=== PATIENT | male | born 1985 | race Caucasian/White ===

== ENCOUNTER 2021-12-05 05:19 | Inpatient (IN) | payer OTHER ==
[~2021-12-05] VITALS: Ht 172.7 cm; Wt 107.0 kg
[~2021-12-05 05:19] MED LIST: LEVOTHYROXINE PO
--- NOTE | 2021-12-05 05:43 | NUR ---
Patient's at bedside
[2021-12-05] MEDS ORDERED: CLONIDINE HCL 0.2 MG TABLET PO ONE (05:45)
[2021-12-05] MEDS ORDERED: IV NORMAL SALINE 1000 ML BAG IV ONE (05:45)
[2021-12-05] MEDS ORDERED: ONDANSETRON 4 MG/2 ML VIAL IV ONE (05:45)
[2021-12-05] MEDS ORDERED: HYDROMORPHONE 1 MG/1 ML DISP.SYRIN IV ONE ×2 (05:45→08:15)
--- NOTE | 2021-12-05 05:45 | NUR ---
Patient's BP is 208/124. Dr Lucero made aware
[2021-12-05 05:56] LABS: HEMATOCRIT 45.2 % (36.7-47.1); MEAN CORPUSCULAR HEMOGLOBIN 27.8 uug (23.8-33.4); PLATELET COUNT (AUTO) 240 K/uL (152-348)
[2021-12-05] MEDS ORDERED: ONDANSETRON 4 MG/2 ML VIAL ONE (05:57)
[2021-12-05] MEDS ORDERED: CLONIDINE HCL 0.2 MG TABLET ONE (05:57)
[2021-12-05] MEDS ORDERED: HYDROMORPHONE 2 MG/1 ML DISP.SYRIN ONE ×2 (05:58→08:54)
[2021-12-05 06:14] LABS: CARBON DIOXIDE 32 mmol/L (21-32); CHLORIDE 101 mmol/L (98-107); CREATININE 1.8 mg/dL (0.6-1.3); GLUCOSE 138 mg/dL (74-106); UREA NITROGEN, BLOOD 20 mg/dL (7-18)
[2021-12-05] MEDS: MAGNESIUM SULFATE/D5W 100 ML IV SCH ×3 (06:15→09:05)
[2021-12-05 06:18] LABS: POTASSIUM 2.7 mmol/L (3.5-5.1)
[2021-12-05 06:19] LABS: ALANINE AMINOTRANSFERASE 26 U/L (16-63); ALKALINE PHOSPHATASE 97 U/L (50-136); ASPARTATE AMINOTRANSFERASE 15 U/L (15-37); BILIRUBIN,DIRECT 0.2 mg/dL (0.0-0.2); LIPASE 159 U/L (73-393); TOTAL PROTEIN, SERUM 7.8 g/dL (6.4-8.2)
[2021-12-05] MEDS ORDERED: POTASSIUM CHLORIDE 200 ML ONE (06:26)
[2021-12-05] MEDS ORDERED: MAGNESIUM SULFATE/D5W 300 ML ONE (06:26)
[2021-12-05] MEDS: POTASSIUM CHLORIDE 50 ML IV SCH ×4 (06:37→10:11)
[2021-12-05] MEDS ORDERED: CLONIDINE HCL 0.1 MG TABLET ONE (06:43)
[2021-12-05] MEDS ORDERED: CLONIDINE HCL 0.1 MG TABLET PO ONE (06:45)
--- NOTE | 2021-12-05 07:00 | NUR ---
change of shift report given to Phil DECKER
[2021-12-05 07:47] LABS: *BILIRUBIN,URIN NEGATIVE (NEGATIVE); *BLOOD, URINE 1+ (NEGATIVE); *CLARITY,URINE CLEAR (CLEAR); *COLOR,URINE YELLOW (YELLOW); *KETONES,URINE NEGATIVE (NEGATIVE); *UROBILINOGEN,URINE 0.2 E.U./dl (NORMAL); LEUKOCYTE ESTERASE ,URINE NEGATIVE (NEGATIVE); NITRITE, URINE NEGATIVE (NEGATIVE); UGLUCOSE NEGATIVE (NEGATIVE)
--- NOTE | 2021-12-05 08:32 | NUR ---
Dr Guerrero spoke to Dr Rockwell for Tele admit.
[2021-12-05 08:35] LABS: CREATININE 1.7 mg/dL (0.6-1.3); POTASSIUM 2.9 mmol/L (3.5-5.1)
[2021-12-05] MEDS ORDERED: AMLODIPINE 5 MG TABLET PO SCH (09:00)
[2021-12-05] MEDS ORDERED: AMLODIPINE 5 MG TABLET ONE (09:07)
[2021-12-05] MEDS ORDERED: LOSA1TAB36 PO (10:17)
[2021-12-05] MEDS ORDERED: METF-440 PO (10:17)
[2021-12-05] MEDS ORDERED: ERGO500040 PO (10:17)
--- NOTE | 2021-12-05 10:30 | NUR ---
received from ER per martine with , IV Potassium infusing on left AC via iv pump, no swelling redness noted site, denies of abdominal pain at this time, on room air, tele applied- SR 70's, initial assessment done, oriented to bed controls and room, explained plan fo care-verbalized understanding, Dr Guerrero saw pt, safety measures initiated
--- NOTE | 2021-12-05 10:37 | NUR ---
REPORT WAS GIVEN TO SOURCING ASSOCIATE RN . PT WAS TRANSFERED TO ROOM #304.
[2021-12-05] MEDS ORDERED: POTASSIUM CHLORIDE 20 MEQ in IV 1/2NS 1000 ML 1,000 ML IV PRN (10:45)
[2021-12-05] MEDS ORDERED: ZOLPIDEM 5 MG TABLET PO PRN (10:45)
[2021-12-05] MEDS ORDERED: ACETAMINOPHEN 325 MG TABLET PO PRN (10:45)
[2021-12-05] MEDS ORDERED: ONDANSETRON 4 MG/2 ML VIAL IV PRN (10:45)
[2021-12-05 11:06] VITALS: BP 130/66
[2021-12-05] MEDS: POTASSIUM CHLORIDE 20 MEQ in IV 1/2NS 1000 ML 1,000 ML IV PRN (11:53)
[2021-12-05] MEDS: ASPIRIN EC 81 MG TABLET.DR PO SCH (11:59)
[2021-12-05] MEDS: LEVOTHYROXINE SODIUM 175 MCG TABLET PO SCH (11:59)
--- NOTE | 2021-12-05 12:00 | NUR ---
lunch served and ate well- denies of any abdominal pain or nausea
[2021-12-05 13:26] LABS: BACTERIA,URINE NONE SEEN /HPF (NONE SEEN); WBC,URINE 0-3 /HPF (0-3)
[2021-12-05 13:27] LABS: SQUAMOUS EPITHELIAL CELL,UR FEW /HPF (NONE SEEN)
[2021-12-05 16:00] VITALS: BP 153/80
[2021-12-05] MEDS ORDERED: hydrALAZINE HCL 25 MG TABLET PO PRN (17:30)
--- NOTE | 2021-12-05 18:22 | NUR ---
no distress noted, ambulated to for urination- tolerated well, denies of abdominal pain, dinner served and ate well, all needs attended and met, call light within reach
[2021-12-05 20:00] VITALS: BP 146/80
[2021-12-05] MEDS: HYDROCODONE/APAP 5-325MG TABLET PO PRN (21:35)
--- NOTE | 2021-12-05 21:35 | NUR ---
PT COMPLAINED OF UPPER BACK PAIN. ANALGESIC GIVEN MD ORDERED. WILL REASSESS. NO SOB OR RESPIRATORY DISTRESS NOTED. ALL NEEDS ATTENDED.
[2021-12-06] VITALS: BP 148/97
[2021-12-06] MEDS: POTASSIUM CHLORIDE 20 MEQ in IV 1/2NS 1000 ML 1,000 ML IV PRN (02:57)
[2021-12-06 04:00] VITALS: BP_SYST 211
[2021-12-06] MEDS: HYDROCODONE/APAP 5-325MG TABLET PO PRN ×2 (04:29→09:45)
--- NOTE | 2021-12-06 04:42 | NUR ---
BP 211/116. APRESOLINE GIVEN ORDERED. ASYMPTOMATIC. PT COMPLAINING OF UPPER BACK PAIN. NORCO GIVEN ORDERED. WILL RECHECK BP AND REASSESS PAIN.
[2021-12-06] MEDS: LEVOTHYROXINE SODIUM 175 MCG TABLET PO SCH (06:07)
[2021-12-06 07:00] LABS: HEMATOCRIT 40.6 % (36.7-47.1); MEAN CORPUSCULAR HEMOGLOBIN 27.6 uug (23.8-33.4); MEAN CORPUSCULAR VOLUME 80.7 fL (73.0-96.2); PLATELET COUNT (AUTO) 167 K/uL (152-348)
[2021-12-06] MEDS ORDERED: PANTOPRAZOLE SODIUM 40 MG TABLET.DR PO SCH (07:00)
[2021-12-06 07:20] LABS: BILIRUBIN,TOTAL 1.5 mg/dL (0.2-1.0); CREATININE 1.6 mg/dL (0.6-1.3); MAGNESIUM 2.1 mg/dL (1.8-2.4); PHOSPHOROUS 3.8 mg/dL (2.5-4.9)
[2021-12-06 07:28] LABS: POTASSIUM 2.8 mmol/L (3.5-5.1)
[2021-12-06] MEDS ORDERED: POTASSIUM CHLORIDE 20 MEQ POWDER PACKET GT ONE (08:00)
[2021-12-06] MEDS ORDERED: hydrALAZINE HCL 50 MG TABLET PO SCH (08:00)
[2021-12-06] MEDS ORDERED: POTASSIUM CHLORIDE 20 MEQ TAB.PRT.SR PO ONE ×2 (08:04→12:00)
[2021-12-06] MEDS: ASPIRIN EC 81 MG TABLET.DR PO SCH (08:11)
[2021-12-06] MEDS ORDERED: AMLODIPINE 10 MG TABLET PO SCH (09:00)
[2021-12-06] MEDS ORDERED: LOSARTAN POTASSIUM 50 MG TABLET PO SCH (09:00)
--- NOTE | 2021-12-06 09:00 | NUR ---
CRITICAL VALUE REPORTED K- 2.8, WAS NOTIFIED. ORDERED KDUR 40 MEQ PO TABLET.
--- NOTE | 2021-12-06 09:49 | NUR ---
PT DISCUSSED PLAN OF CARE WITH DR NICHOLE AND DR SHARMA. PT IS AWAKE PT UNDERSTANDING
--- NOTE | 2021-12-06 10:58 | NUR ---
NOTIFIED FOR PT HIGH BP 189/91 95HR. ORDERED METOPROLOL SUCCINATE
[2021-12-06] MEDS ORDERED: METOPROLOL SUCCINATE XL 50 MG TAB.SR.24H PO SCH (11:30)
[2021-12-06] MEDS ORDERED: CLON0.1T PO (11:56)
[2021-12-06] MEDS ORDERED: AMLO10TA59 PO (11:56)
[2021-12-06] MEDS ORDERED: METO-357 PO (11:56)
--- NOTE | 2021-12-06 11:57 | NUR ---
PT AND DR SHARMA DISCUSSED THE PLAN OF CARE. DR SHARMA WILL DISCHARGE PT. PT VERBALIZED UNDERSTANDING OF PLAN OF CARE
[2021-12-06 12:03] VITALS: BP 189/91
[2021-12-06] MEDS ORDERED: ATOR10TA PO (12:04)
[2021-12-06] MEDS ORDERED: POTA10CA43 PO (12:08)
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
[2021-12-07] MEDS ORDERED: ACET-2154 PO (00:37)
[2021-12-07] MEDS ORDERED: LEVO500T90 PO (00:37)
[2021-12-07 12:06] LABS: CORTISOL AM 7.7 ug/dL (6.2-19.4)
[2021-12-12 11:06] LABS: ALDOSTERONE 42.1 ng/dL (0.0-30.0)
[2021-12-13 09:06] LABS: RENIN 0.612 ng/mL/hr (0.167-5.380)
== END 2021-12-06 12:30 | disposition home or self-care (01) | DRG 199 ==
LOC: ER 05:22 → TELE3 09:48
PROVIDERS: ADMIT Internal Medicine; ATTEND Internal Medicine
DX: I16.0 Hypertensive urgency (principal); N17.0 Acute kidney failure with tubular necrosis; I13.10 Hypertensive heart and chronic kidney disease without heart failure, with stage 1 through stage 4 chronic kidney disease, or unspecified chronic kidney disease; E87.6 Hypokalemia; D35.02 Benign neoplasm of left adrenal gland; R10.31 Right lower quadrant pain; R10.32 Left lower quadrant pain; N28.1 Cyst of kidney, acquired; K42.9 Umbilical hernia without obstruction or gangrene; E78.5 Hyperlipidemia, unspecified; I70.0 Atherosclerosis of aorta; Z87.442 Personal history of urinary calculi; E11.22 Type 2 diabetes mellitus with diabetic chronic kidney disease; N18.2 Chronic kidney disease, stage 2 (mild); E66.9 Obesity, unspecified; E03.9 Hypothyroidism, unspecified; Z79.890 Hormone replacement therapy; Z82.49 Family history of ischemic heart disease and other diseases of the circulatory system; Z83.49 Family history of other endocrine, nutritional and metabolic diseases; Z68.35 Body mass index [BMI] 35.0-35.9, adult; Z20.822 Contact with and (suspected) exposure to COVID-19; R77.8 Other specified abnormalities of plasma proteins; R94.31 Abnormal electrocardiogram [ECG] [EKG]; F17.210 Nicotine dependence, cigarettes, uncomplicated
CPT/HCPCS: 36415; 71045; 82088; 82533; 83605; 83690; 83735; 84100; 84244; 84443; 84484; 85025; 93005; 93307; A4663; G0378; J1170; J2405; J3475; J3480; J7040

== ENCOUNTER 2021-12-06 23:05 | Emergency (ER) | payer OTHER ==
[~2021-12-06] VITALS: Ht 177.8 cm; Wt 79.4 kg
[~2021-12-06 23:05] MED LIST changes: +AMLO10TA59 PO; +ATOR10TA PO; +CLON0.1T PO; +ERGO500040 PO; +LOSA1TAB36 PO; +METF-440 PO; +METO-357 PO; +POTA10CA43 PO
[2021-12-06] MEDS ORDERED: AMLODIPINE 5 MG TABLET PO ONE (23:30)
[2021-12-06] MEDS ORDERED: MORPHINE SULFATE 4 MG/1 ML DISP.SYRIN IV ONE (23:30)
[2021-12-06] MEDS ORDERED: AMLODIPINE 5 MG TABLET ONE (23:38)
[2021-12-06] MEDS ORDERED: MORPHINE SULFATE 4 MG/1 ML DISP.SYRIN ONE (23:39)
[2021-12-06 23:52] LABS: HEMATOCRIT 43.2 % (36.7-47.1); MEAN CORPUSCULAR HEMOGLOBIN 27.4 uug (23.8-33.4); MEAN CORPUSCULAR VOLUME 81.1 fL (73.0-96.2); PLATELET COUNT (AUTO) 208 K/uL (152-348)
[2021-12-06 23:53] LABS: CREATININE 1.9 mg/dL (0.6-1.3); POTASSIUM 3.4 mmol/L (3.5-5.1)
[2021-12-07] LABS: *BILIRUBIN,URIN 1+ (NEGATIVE); *BLOOD, URINE 3+ (NEGATIVE); *CLARITY,URINE CLEAR (CLEAR); *COLOR,URINE YELLOW (YELLOW); *KETONES,URINE TRACE (NEGATIVE); LEUKOCYTE ESTERASE ,URINE NEGATIVE (NEGATIVE); NITRITE, URINE NEGATIVE (NEGATIVE); UGLUCOSE NEGATIVE (NEGATIVE)
--- NOTE | 2021-12-07 00:12 | NUR ---
US tech at bedside
[2021-12-07] MEDS ORDERED: MORPHINE SULFATE 4 MG/1 ML DISP.SYRIN IM ONE (00:15)
[2021-12-07 00:27] LABS: BACTERIA,URINE NONE SEEN /HPF (NONE SEEN); SQUAMOUS EPITHELIAL CELL,UR FEW /HPF (NONE SEEN); WBC,URINE 0-3 /HPF (0-3)
[2021-12-07] MEDS ORDERED: LEVO500T90 PO (00:37)
[2021-12-07] MEDS ORDERED: ACET-2154 PO (00:37)
[2021-12-07] MEDS ORDERED: levoFLOXacin 500 MG TABLET ONE (00:41)
[2021-12-07] MEDS ORDERED: CIPROFLOXACIN HCL 250 MG TABLET PO ONE (00:45)
[2021-12-07] MEDS ORDERED: levoFLOXacin 500 MG TABLET PO ONE (00:45)
--- NOTE | 2021-12-07 00:45 | NUR ---
Patient discharged to home in stable condition. Written and verbal after care instructions given. Patient verbalizes understanding of instructions. Stressed follow up or return to ER for worsening s/s. Patient is a/ox4, NAD noted, Patient is able to walk with steady gait. Patient is accompanied by his SO
[2021-12-07 00:50] VITALS: BP 145/86
== END 2021-12-07 00:45 | disposition home or self-care (01) ==
LOC: ER 23:11
DX: N45.1 Epididymitis (principal); I10 Essential (primary) hypertension; R31.9 Hematuria, unspecified; N43.3 Hydrocele, unspecified; E11.9 Type 2 diabetes mellitus without complications; Z79.84 Long term (current) use of oral hypoglycemic drugs; E07.9 Disorder of thyroid, unspecified; Z79.890 Hormone replacement therapy
CPT/HCPCS: 99284; 80048; 81001; 85025; 36415; 76870; 96372; J2270; A4663

== ENCOUNTER 2021-12-09 12:00 | Emergency (ER) | payer OTHER ==
[~2021-12-09] VITALS: Ht 177.8 cm; Wt 107.0 kg
[~2021-12-09 12:00] MED LIST changes: +ACET-2154 PO; +LEVO500T90 PO; -LOSA1TAB36 PO
[2021-12-09] MEDS ORDERED: MORPHINE SULFATE 4 MG/1 ML DISP.SYRIN IV ONE (12:30)
[2021-12-09] MEDS ORDERED: IV NORMAL SALINE 500 ML BAG IV ONE (12:30)
--- NOTE | 2021-12-09 12:51 | NUR ---
Patient was seen by MD. IV placed, labs drawn. 12 lead EKG done. VSS. Med given as ordered.
[2021-12-09] MEDS ORDERED: MORPHINE SULFATE 4 MG/1 ML DISP.SYRIN ONE (12:54)
[2021-12-09 12:58] LABS: HEMATOCRIT 41.4 % (36.7-47.1); MEAN CORPUSCULAR HEMOGLOBIN 27.9 uug (23.8-33.4); PLATELET COUNT (AUTO) 209 K/uL (152-348)
[2021-12-09] MEDS ORDERED: SWABABLE VALVE TRANSFER SET EA MC ONE ×2 (13:01→14:46)
[2021-12-09] MEDS ORDERED: IOHEXOL 300MG/ML 100 ML INFUS..BTL ONE (13:01)
[2021-12-09] MEDS ORDERED: IV NORMAL SALINE 250 ML IV ONE ×2 (13:01→14:46)
[2021-12-09 13:09] LABS: POTASSIUM 3.2 mmol/L (3.5-5.1)
[2021-12-09 13:14] LABS: BILIRUBIN,TOTAL 1.2 mg/dL (0.2-1.0); TOTAL PROTEIN, SERUM 7.9 g/dL (6.4-8.2)
[2021-12-09 13:17] LABS: *BILIRUBIN,URIN NEGATIVE (NEGATIVE); *BLOOD, URINE 3+ (NEGATIVE); *CLARITY,URINE CLEAR (CLEAR); *COLOR,URINE YELLOW (YELLOW); *KETONES,URINE NEGATIVE (NEGATIVE); LEUKOCYTE ESTERASE ,URINE NEGATIVE (NEGATIVE); NITRITE, URINE NEGATIVE (NEGATIVE); UGLUCOSE NEGATIVE (NEGATIVE)
[2021-12-09] MEDS ORDERED: POTA10CA43 PO (13:31)
[2021-12-09 13:52] LABS: *AMPHETAMINE, URINE NEGATIVE (NEGATIVE); *CANNABINOID, URINE NEGATIVE (NEGATIVE); *COCCAINE, URINE NEGATIVE (NEGATIVE); *OPIATE, URINE POSITIVE (NEGATIVE); *PHENCYCLIDINE SCREEN,URINE NEGATIVE (NEGATIVE)
--- NOTE | 2021-12-09 14:31 | NUR ---
I called [facility] ER for transfer to [place] for aortic dissection. They asked for a fax of the CT report which I faxed. Haydee their charge nurse stated she will contact the vascualr surgeon and call back TALHA
[2021-12-09] MEDS ORDERED: ESMOLOL 2.5 GM/NS 250 ML DRIP 250 ML IV PRN (14:45)
[2021-12-09] MEDS ORDERED: ESMOLOL HCL 100 MG/10 ML VIAL IV ONE ×2 (14:45→14:47)
[2021-12-09] MEDS ORDERED: IOHEXOL 350 100 ML INFUS..BTL ONE (14:46)
[2021-12-09] MEDS ORDERED: ESMOLOL 2.5 GM/NS 250 ML DRIP 250 ML IV ONE (14:47)
--- NOTE | 2021-12-09 15:08 | NUR ---
2ND IV ACCESS INITIATED, BREVIBLOC BOLUS ADMINISTERED PER MD ORDER. VS CHECKED Q5MINS. [facility] HERE FOR TRANSPORT TO [facility] - JERONIMO CORTES WENT WITH TRANSPORTERS. BREVIBLOC DRIP INITIATED BY RN PER MD ORDER WHILE IN TRANSPORT. PT REMAINS AWAKE AND ALERT. MD INFORMED RE EMERGENCY BY PHONE. SHE ARRIVED SHORTLY BEFORE TRANSPORT.
--- NOTE | 2021-12-09 15:13 | NUR ---
PT TRANSFERED VIA [facility] TRANSPORT TO [facility] WITH DR MIKE REPORTED RECEIVING PHYSICIAN
[2021-12-09 15:22] LABS: BACTERIA,URINE NONE SEEN /HPF (NONE SEEN); SQUAMOUS EPITHELIAL CELL,UR FEW /HPF (NONE SEEN)
[2021-12-09 15:56] VITALS: BP 191/82
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
== END 2021-12-09 15:22 | disposition short-term general hospital (02) ==
LOC: ER 12:00
DX: I71.03 Dissection of thoracoabdominal aorta (principal); I12.9 Hypertensive chronic kidney disease with stage 1 through stage 4 chronic kidney disease, or unspecified chronic kidney disease; E11.22 Type 2 diabetes mellitus with diabetic chronic kidney disease; N18.9 Chronic kidney disease, unspecified; Z79.84 Long term (current) use of oral hypoglycemic drugs; E78.5 Hyperlipidemia, unspecified; D35.00 Benign neoplasm of unspecified adrenal gland; E66.9 Obesity, unspecified; Z68.33 Body mass index [BMI] 33.0-33.9, adult
CPT/HCPCS: 99291; 74177; 96361; 80053; 85025; 84484; 36415; 93005; 80307; 81001; 96374 ×2; J3490 ×2; Q9967; J2270; J7040